=== PATIENT | male | born 1960 | race Caucasian/White ===

== ENCOUNTER 2023-05-18 12:54 | Outpatient (OUT) | payer MEDICARE, BC, SELFPAY ==
--- NOTE | 2023-05-18 13:22 | CT_ITS ---
[address] [address] Patient Name: TORSTEN GROVES MRN: [id number] date: 1960 Sex: M Assigned Patient Location: CT Current Patient Location: Accession/Order Number: [id number] Exam Date: 05/18/2023 13:18 Report Date: 05/19/2023 06:42 At the request of: YEHUDA PETERSON Procedure: CT lung screening low-dose EXAMINATION: CT lung screening low-dose HISTORY: Cigarette Nicotine Dependence F17.210 COMPARISON: No relevant comparison available. TECHNIQUE: Axial, Coronal, and Sagittal images were created without the administration of IV contrast material. Dose reduction techniques were achieved by using automated exposure control and/or adjustment of mA and/or kV according to patient size and/or use of iterative reconstruction technique. FINDINGS: LUNGS: Mild emphysematous changes. A few sub-5 mm nodules scattered within the lungs. PLEURA: No mass, effusion, or pneumothorax. VASCULATURE: No abnormality. AMADEO: No mass or pathologic adenopathy. MEDIASTINUM: No mass or pathologic adenopathy. CARDIAC: No enlargement, pericardial thickening, or significant calcification. AORTA: No aneurysm or dissection. CHEST WALL: No mass or axillary adenopathy BONES: No bone lesion or fracture. LIMITED ABDOMEN: No suspicious findings. Limited images of the upper abdomen. OTHER: Negative. CT/CT lung screening low-dose IMPRESSION: 1. Lung-RADS Category 3- Probably benign. Probably benign finding(s)- short term follow up suggested; includes nodules with a low likelihood of becoming a clinically active cancer. Six month LDCT. Electronically authenticated by: NALDO TOUSSAINT Date: 05/19/2023 06:42
== END 2023-05-18 12:55 | disposition home or self-care (01) ==
LOC: CT 12:54
PROVIDERS: PCP Internal Medicine; Visit Provider Internal Medicine
DX: F17.210 Nicotine dependence, cigarettes, uncomplicated (principal)
CPT/HCPCS: 71271

== ENCOUNTER 2024-03-06 12:47 | Outpatient (OUT) | payer MEDICARE, SELFPAY ==
--- NOTE | 2024-03-06 12:52 | CT_ITS ---
[address] [address] Patient Name: TORSTEN GROVES MRN: [id number] date: 1960 Sex: M Assigned Patient Location: CT Current Patient Location: CT Accession/Order Number: [id number] Exam Date: 03/06/2024 13:11 Report Date: 03/06/2024 13:54 At the request of: YEHUDA PETERSON Procedure: CT chest wo con EXAMINATION: CT chest wo con HISTORY: Cigarette Smoker F17.210 COMPARISON: CT LUNG CANCER SCREENING 05/18/2023 TECHNIQUE: Multi-planar CT images were obtained without and/or with IV contrast as indicated by examination type. Axial, Coronal, and Sagittal images. Dose reduction techniques were achieved by using automated exposure control and/or adjustment of mA and/or kV according to patient size and/or use of iterative reconstruction technique. FINDINGS: LUNGS: Several new geographic shaped opacities within lung apices bilaterally, largest is on left, 3.4 x 0.9 cm in axial plane. 2 new 8 mm nodules adjacent the left major fissure at the level of hilum. The small nodules/opacities seen on the prior study have remained stable. Mild emphysematous changes. PLEURA: No mass, effusion, or pneumothorax. VASCULATURE: No abnormality. AMADEO: No mass or adenopathy. MEDIASTINUM: No mass or adenopathy. CARDIAC: No enlargement, pericardial thickening, or significant calcification. AORTA: No aneurysm or dissection. CHEST WALL: No mass or axillary adenopathy. BONES: No bone lesion or fracture. LIMITED ABDOMEN: Grossly stable low-density lesion within right kidney most compatible with a cyst. Limited images of the upper abdomen. OTHER: Negative. CT/CT chest wo con IMPRESSION: 1. Several new irregular geographic shaped opacities within lung apices and 2 new nodules adjacent the left major fissure; infectious infiltrates versus neoplasm. The previously seen small nodules/opacities all have remained stable. If there is clinical concern for infectious etiology/pneumonia consider follow-up CT chest in 1 month to document clearing. Otherwise consider PET imaging at this time. Electronically authenticated by: NALDO TOUSSAINT Date: 03/06/2024 13:54
== END 2024-03-06 12:48 | disposition home or self-care (01) ==
LOC: CT 12:47
PROVIDERS: PCP Internal Medicine; Visit Provider Internal Medicine
DX: R91.8 Other nonspecific abnormal finding of lung field (principal); F17.210 Nicotine dependence, cigarettes, uncomplicated
CPT/HCPCS: 71250